=== PATIENT | female | born 1945 | race African-American/Black ===

== ENCOUNTER 2016-12-28 08:24 | Emergency (ER) | payer MEDICARE, MEDICAID ==
[~2016-12-28] VITALS: Ht 162.6 cm; Wt 86.5 kg
[2016-12-28] MEDS ORDERED: GABA-529 PO (09:06)
[2016-12-28] MEDS ORDERED: LOSA1TAB34 PO (09:06)
[2016-12-28] MEDS ORDERED: ACETAMINOPHEN 325MG TABLET PO ONE (09:30)
[2016-12-28] MEDS ORDERED: SODIUM CHLORIDE 0.9% 500 ML IV ONE (09:30)
[2016-12-28] MEDS ORDERED: ONDANSETRON HCL 4MG/2ML VIAL IV ONE (09:30)
[2016-12-28 09:59] LABS: BASOPHILS % 1.1 % (0.0-2.0); EOSINOPHILS % 0.5 % (0.0-5.0); HEMATOCRIT. 43.8 % (36.0-48.0); HEMOGLOBIN. 14.7 g/dL (12.0-16.0); LYMPHOCYTES % 23.8 % (20.0-50.0); MEAN CORPUSCULAR HEMOGLOBIN 27.8 pg (28.0-32.0); MEAN CORPUSCULAR HGB CONC 33.5 g/dL (31.0-37.0); MEAN CORPUSCULAR VOLUME 83.1 fL (81.0-99.0); MEAN PLATELET VOLUME 9.2 fl (7.4-10.4); MONOCYTES % 3.9 % (2.0-8.0); NEUTROPHILS % 70.7 % (40.0-76.0); PLATELET 194 x1000/uL (130-400); RED BLOOD CELL COUNT 5.27 mill/uL (4.2-5.4); RED CELL DISTRIBUTION WIDTH 14.1 % (11.6-14.6); WHITE BLOOD COUNT 4.7 x1000/uL (4.5-11.0)
[2016-12-28 10:17] LABS: ALANINE AMINOTRANSFERASE 18 IU/L (13-61); ANION GAP 11; CALCIUM 9.4 mg/dL (8.5-10.1); CARBON DIOXIDE 30 mEq/L (21-32); CHLORIDE 103 mEq/L (98-107); INDEX HEMOLYSI 2 (1-3); INDEX ICTERIC 1 (1-4); INDEX LIPEMIC 1 (1-3); MAGNESIUM 2.1 mg/dL (1.8-2.4); TROPONIN I < 0.02 ng/mL (0.00-0.04); UREA NITROGEN BLOOD 18 mg/dL (7-21); eGFR > 60 mL/min (>60)
[2016-12-28 10:49] LABS: CLARITY URINE CLEAR (CLEAR); COLOR URINE YELLOW (YELLOW); GLUCOSE URINE NEGATIVE (NEGATIVE); KETONES URINE NEGATIVE (NEGATIVE); LEUKOCYTE ESTERASE URINE 1+ (NEGATIVE); NITRITE URINE NEGATIVE (NEGATIVE); OCCULT BLOOD URINE NEGATIVE (NEGATIVE); PROTEIN URINE NEGATIVE (NEGATIVE); SPECIFIC GRAVITY URINE 1.017 (1.005-1.030); UROBILINOGEN URINE 0.2 E.U./dL (0.2-1.0)
[2016-12-28 10:56] LABS: T4 FREE 1.11 ng/dL (0.76-1.46); THYROID STIMULATING HORMONE 1.3 uIU/mL (0.36-3.74)
[2016-12-28 11:14] LABS: BACTERIA URINE 1+; RBC URINE NONE SEEN /hpf (0-2); SQUAMOUS EPITHELIAL CELL URINE FEW /lpf (RARE/1+)
[2016-12-28 11:34] LABS: *AMPHETAMINES SCREEN URINE NEGATIVE (NEGATIVE); *BARBITURATES SCREEN URINE NEGATIVE (NEGATIVE); *BENZODIAZEPINES SCREEN URINE NEGATIVE (NEGATIVE); *COCAINE SCREEN URINE NEGATIVE (NEGATIVE); CANNABINOID URINE SCREEN NEGATIVE (NEGATIVE); ECSTASY MDMA SCREEN URINE NEGATIVE (NEGATIVE); METHADONE URINE SCREEN NEGATIVE (NEGATIVE); OPIATES URINE SCREEN NEGATIVE (NEGATIVE); PHENCYCLIDINE URINE SCREEN NEGATIVE (NEGATIVE)
[2016-12-28 13:15] VITALS: BP 156/91
[2016-12-28] MEDS ORDERED: SULFAMETHOXAZOLE/TRIMETHOPRIM 800/160MG TABLET PO ONE (13:30)
== END 2016-12-28 13:57 | disposition home or self-care (01) ==
LOC: ER 09:58
DX: N39.0 Urinary tract infection, site not specified (principal); E86.0 Dehydration; N20.0 Calculus of kidney; R73.03 Prediabetes; R26.81 Unsteadiness on feet; K76.89 Other specified diseases of liver; K57.90 Diverticulosis of intestine, part unspecified, without perforation or abscess without bleeding; M19.90 Unspecified osteoarthritis, unspecified site; I10 Essential (primary) hypertension; Z88.6 Allergy status to analgesic agent; Z88.5 Allergy status to narcotic agent; Z79.899 Other long term (current) drug therapy; Z90.710 Acquired absence of both cervix and uterus; Z87.891 Personal history of nicotine dependence
CPT/HCPCS: 36415; 70450; 71010; 74176; 80053; 80305; 81001; 82941; 83036; 83605; 83735; 84439; 84443; 84484; 85025; 85651; 86141; 87040; 87086; 93005; 96361; 96374; 99285; J2405; J7040

== ENCOUNTER 2018-11-04 21:51 | Inpatient (IN) | payer MEDICARE, OTHER ==
[~2018-11-04] VITALS: Ht 165.1 cm; Wt 74.8 kg
[~2018-11-04 21:51] MED LIST: GABA-529 PO; LOSA1TAB34 PO
[2018-11-04] MEDS ORDERED: SODIUM CHLORIDE 0.9% 1,000 ML IV ONE (22:05)
[2018-11-04 22:33] LABS: BASOPHILS % 0.7 % (0.0-2.0); EOSINOPHILS % 0.8 % (0.0-5.0); HEMATOCRIT. 40.5 % (36.0-48.0); HEMOGLOBIN. 13.2 g/dL (12.0-16.0); LYMPHOCYTES % 30.6 % (20.0-50.0); MEAN CORPUSCULAR HEMOGLOBIN 28.1 pg (28.0-32.0); NEUTROPHILS % 60.9 % (40.0-76.0); PLATELET 227 x1000/uL (130-400); RED BLOOD CELL COUNT 4.71 mill/uL (4.2-5.4); RED CELL DISTRIBUTION WIDTH 14.2 % (11.6-14.6)
[2018-11-04 22:38] LABS: CHLORIDE 107 mEq/L (98-107)
[2018-11-04 22:42] LABS: ETHANOL BLOOD < 10 mg/dL
[2018-11-04 22:45] LABS: LDL CHOLESTEROL 142 mg/dL (5-100)
[2018-11-05 01:32] LABS: CLARITY URINE CLEAR (CLEAR); COLOR URINE YELLOW (YELLOW); KETONES URINE NEGATIVE (NEGATIVE); LEUKOCYTE ESTERASE URINE NEGATIVE (NEGATIVE); NITRITE URINE NEGATIVE (NEGATIVE); OCCULT BLOOD URINE NEGATIVE (NEGATIVE); PROTEIN URINE NEGATIVE (NEGATIVE); UROBILINOGEN URINE 0.2 E.U./dL (0.2-1.0)
[2018-11-05 06:15] LABS: *AMPHETAMINES SCREEN URINE NEGATIVE (NEGATIVE); *BARBITURATES SCREEN URINE NEGATIVE (NEGATIVE); *BENZODIAZEPINES SCREEN URINE NEGATIVE (NEGATIVE); *COCAINE SCREEN URINE NEGATIVE (NEGATIVE); CANNABINOID URINE SCREEN NEGATIVE (NEGATIVE); METHADONE URINE SCREEN NEGATIVE (NEGATIVE); OPIATES URINE SCREEN NEGATIVE (NEGATIVE); PHENCYCLIDINE URINE SCREEN NEGATIVE (NEGATIVE)
[2018-11-05] MEDS ORDERED: HYDRALAZINE 20MG/ML VIAL IV PRN (07:15)
[2018-11-05] MEDS ORDERED: IPRATROPIUM/ALBUTEROL 0.5-3(2.5)MG/3ML NEB INH PRN (07:15)
[2018-11-05] MEDS ORDERED: DIPHENHYDRAMINE 50MG/ML VIAL IV PRN (07:15)
[2018-11-05] MEDS ORDERED: CLONIDINE 0.1MG TABLET PO PRN (07:15)
[2018-11-05] MEDS ORDERED: LORAZEPAM 2MG/ML CPJ IV PRN (07:15)
[2018-11-05] MEDS ORDERED: ONDANSETRON HCL 4MG/2ML INJ IV PRN (07:15)
[2018-11-05] MEDS ORDERED: GUAIFENESIN 200MG/10ML SUGAR FREE UDC PO PRN (07:15)
[2018-11-05] MEDS ORDERED: DOCUSATE SODIUM 100MG CAPSULE PO PRN (07:15)
[2018-11-05] MEDS ORDERED: MAGNESIUM/ALUMINUM HYDROXIDE/SIMETHICONE 30ML UDC PO PRN (07:15)
[2018-11-05] MEDS ORDERED: ACETAMINOPHEN 325MG TABLET PO PRN (07:15)
[2018-11-05] MEDS ORDERED: TRAMADOL 50MG TABLET PO PRN (07:15)
[2018-11-05 11:14] VITALS: BP 130/58
[2018-11-05 11:50] VITALS: BP 141/66
[2018-11-05] MEDS ORDERED: LOSA1TAB34 MT (11:56)
[2018-11-05] MEDS ORDERED: CHOL400C8 MT (11:56)
[2018-11-05] MEDS ORDERED: CALC-25 MT (11:56)
[2018-11-05] MEDS: SODIUM CHLORIDE 0.9% INJ 3ML FLUSH IVF SCH ×2 (12:32→14:07)
[2018-11-05] MEDS: ENOXAPARIN 40MG/0.4ML SYR SUBCUT SCH (12:32)
[2018-11-05] MEDS ORDERED: MEDICATION NOT ON FORMULARY EA (Losartan/Hydrochlorothiazide (Losartan-Hctz 50-12.5 Mg T MT SCH (13:30)
[2018-11-05] MEDS ORDERED: ATOR20TA65 MT (13:49)
[2018-11-05] MEDS: LOSARTAN POTASSIUM 50 MG TABLET PO SCH (14:07)
[2018-11-05] MEDS: HYDROCHLOROTHIAZIDE 12.5MG CAPSULE PO SCH (14:07)
[2018-11-05 15:02] LABS: CREATINE KINASE 148 IU/L (26-192)
[2018-11-05 15:03] LABS: CREATINE KINASE MB FRACTION < 1.0 ng/mL (0.5-3.6)
[2018-11-05 16:00] VITALS: BP 132/62
[2018-11-05 20:00] VITALS: BP 125/58
[2018-11-05] MEDS: ATORVASTATIN CALCIUM 20MG TABLET PO SCH (21:00)
[2018-11-06] VITALS: BP 143/57
[2018-11-06 00:04] LABS: CREATINE KINASE 154 IU/L (26-192)
[2018-11-06 00:05] LABS: CREATINE KINASE MB FRACTION < 1.0 ng/mL (0.5-3.6)
[2018-11-06] MEDS: SODIUM CHLORIDE 0.9% INJ 3ML FLUSH IVF SCH ×4 (00:20→21:28)
[2018-11-06 04:00] VITALS: BP 127/61
[2018-11-06 07:01] LABS: BASOPHILS % 1.1 % (0.0-2.0); EOSINOPHILS % 3.2 % (0.0-5.0); HEMATOCRIT. 38.6 % (36.0-48.0); LYMPHOCYTES % 45.6 % (20.0-50.0); MEAN CORPUSCULAR HEMOGLOBIN 27.5 pg (28.0-32.0); MEAN CORPUSCULAR VOLUME 88.5 fL (81.0-99.0); MEAN PLATELET VOLUME 9.2 fl (7.4-10.4); MONOCYTES % 7.2 % (2.0-8.0); NEUTROPHILS % 42.9 % (40.0-76.0); PLATELET 180 x1000/uL (130-400); RED BLOOD CELL COUNT 4.36 mill/uL (4.2-5.4); RED CELL DISTRIBUTION WIDTH 14.1 % (11.6-14.6)
[2018-11-06 07:06] LABS: CHLORIDE 107 mEq/L (98-107)
[2018-11-06 07:14] LABS: LDL CHOLESTEROL 114 mg/dL (5-100)
[2018-11-06 07:16] LABS: HDL CHOLESTEROL 81 mg/dL (40-59); T4 FREE 1.17 ng/dL (0.76-1.46)
[2018-11-06] MEDS: CALCIUM CARBONATE 1250MG TABLET (500MG ELEMENTAL CALCIUM) PO SCH (10:30)
[2018-11-06] MEDS: ENOXAPARIN 40MG/0.4ML SYR SUBCUT SCH (10:30)
[2018-11-06] MEDS: CHOLECALCIFEROL (VIT D3) 400 UNIT TABLET PO SCH (10:30)
[2018-11-06 12:00] VITALS: BP 125/62
[2018-11-06] MEDS: LOSARTAN POTASSIUM 50 MG TABLET PO SCH (13:41)
[2018-11-06] MEDS: HYDROCHLOROTHIAZIDE 12.5MG CAPSULE PO SCH (13:41)
[2018-11-06 16:00] VITALS: BP 116/41
[2018-11-06 20:00] VITALS: BP 141/65
[2018-11-06] MEDS: ATORVASTATIN CALCIUM 20MG TABLET PO SCH (20:49)
[2018-11-07] VITALS: BP 115/61
[2018-11-07 04:00] VITALS: BP 138/64
[2018-11-07] MEDS: SODIUM CHLORIDE 0.9% INJ 3ML FLUSH IVF SCH (05:27)
[2018-11-07 07:59] LABS: VITAMIN B12 SERUM > 2000.0 pg/mL (211-911)
[2018-11-07 08:00] VITALS: BP 129/66
[2018-11-07] MEDS: CHOLECALCIFEROL (VIT D3) 400 UNIT TABLET PO SCH (09:20)
[2018-11-07] MEDS: LOSARTAN POTASSIUM 50 MG TABLET PO SCH (09:20)
[2018-11-07] MEDS: CALCIUM CARBONATE 1250MG TABLET (500MG ELEMENTAL CALCIUM) PO SCH (09:20)
[2018-11-07] MEDS: HYDROCHLOROTHIAZIDE 12.5MG CAPSULE PO SCH (09:20)
[2018-11-07] MEDS: ENOXAPARIN 40MG/0.4ML SYR SUBCUT SCH (09:25)
[2018-11-07 12:00] VITALS: BP 129/66
[2018-11-07 12:08] VITALS: BP 111/63
== END 2018-11-07 12:57 | disposition home or self-care (01) | DRG 69 ==
LOC: ER 21:58 → 8WST 11-05 01:03 → EDBEDREQSVC 11-05 01:05 → EDBEDREQTM 11-05 01:05 → EDBEDREQ 11-05 01:05 → ENRESERV 11-05 07:07 → 8WST 11-05 09:04
PROVIDERS: ADMIT Internal Medicine; ATTEND Internal Medicine
DX: G45.9 Transient cerebral ischemic attack, unspecified (principal); R25.1 Tremor, unspecified; F79 Unspecified intellectual disabilities; H40.9 Unspecified glaucoma; I10 Essential (primary) hypertension; M19.90 Unspecified osteoarthritis, unspecified site; Z87.440 Personal history of urinary (tract) infections; Z88.6 Allergy status to analgesic agent; Z90.710 Acquired absence of both cervix and uterus; Z88.5 Allergy status to narcotic agent; Z88.4 Allergy status to anesthetic agent
CPT/HCPCS: 36415; 71045; 80061; 80305; 82140; 82550; 82553; 82607; 83721; 84439; 84443; 84484; 93005; 96372; 97116; 97162; 99285; J1650; J7030

== ENCOUNTER → 2021-02-05 | Outpatient (CLI) | payer MEDICARE, OTHER ==
[~2021-02-05] MED LIST changes: +ATOR20TA65 MT; +CALC-26 MT; +CHOL400C8 MT; -GABA-529 PO; +LOSA100T32 PO; +LOSA1TAB34 MT; -LOSA1TAB34 PO; +MELO-104 PO; +MULT-1116 PO
== END | disposition home or self-care (01) ==
LOC: LAB 08:37
PROVIDERS: ATTEND Ophthalmology
DX: Z01.812 Encounter for preprocedural laboratory examination (principal); Z20.822 Contact with and (suspected) exposure to COVID-19
CPT/HCPCS: 87426

== ENCOUNTER → 2021-02-06 | Day surgery (SDC) | payer MEDICARE, OTHER ==
[~2021-02-06] VITALS: Ht 160 cm; Wt 61.2 kg
[~2021-02-06] MED LIST changes: +BALANCED SALT IRRIG SOLN 15ML ONE; +BALANCED SALT IRRIG SOLN COMB1 500ML OP SCH; -CALC-26 MT; +CIPROFLOXACIN 0.3% OPHTH SOLN 2.5ML ONE; +FENTANYL CITRATE/PF 50MCG/ML 2ML VIAL ONE; +HYALURONATE SODIUM 10 MG/ML 0.55ML SYRINGE IO ONE; +LACTATED RINGERS 1,000 ML IV SCH; +LIDOCAINE HCL/PF 2% 20 MG/ML 10ML VIAL ONE; -LOSA1TAB34 MT; +MIDAZOLAM HCL 2 MG/2 ML VIAL ONE; +NEO/POLYMYX B SULF/DEXAMETH OPHTH OINT 3.5GM ONE; +PHENYLEPHRINE HCL 10% OPHTH DROPS 5ML LEFTEYE NR; +PHENYLEPHRINE HCL 10% OPHTH DROPS 5ML LEFTEYE SCH; +PHENYLEPHRINE HCL 10% OPHTH DROPS 5ML ONE; +PREDNISOLONE ACETATE 1% OPHTH DROPS 5ML ONE; +TETRACAINE 0.5% OPHTH DROPS 4ML ONE; +TROPICAMIDE 1% OPHTH DROPS 15ML LEFTEYE NR; +TROPICAMIDE 1% OPHTH DROPS 15ML ONE
== END | disposition home or self-care (01) ==
LOC: OR 08:40
PROVIDERS: ATTEND Ophthalmology
DX: H25.89 Other age-related cataract (principal); E78.00 Pure hypercholesterolemia, unspecified; Z79.899 Other long term (current) drug therapy; Z98.890 Other specified postprocedural states; Z88.8 Allergy status to other drugs, medicaments and biological substances; Z82.49 Family history of ischemic heart disease and other diseases of the circulatory system
CPT/HCPCS: 66984; J2250; J3010; J3490; V2632

== ENCOUNTER 2023-08-11 14:07 | Inpatient (IN) | payer MEDICARE, OTHER ==
[~2023-08-11] VITALS: Ht 164.6 cm; Wt 66.7 kg
[2023-08-11] VITALS (19 sets, daily range): BP systolic 114–142; BP diastolic 53–76; PULSE 42–69; RESP 16; TEMP 98–98.5; O2SAT 98
[~2023-08-11 14:07] MED LIST changes: -BALANCED SALT IRRIG SOLN 15ML ONE; -BALANCED SALT IRRIG SOLN COMB1 500ML OP SCH; -CIPROFLOXACIN 0.3% OPHTH SOLN 2.5ML ONE; -FENTANYL CITRATE/PF 50MCG/ML 2ML VIAL ONE; -HYALURONATE SODIUM 10 MG/ML 0.55ML SYRINGE IO ONE; -LACTATED RINGERS 1,000 ML IV SCH; -LIDOCAINE HCL/PF 2% 20 MG/ML 10ML VIAL ONE; -LOSA100T32 PO; +LOSA100T33 PO; -MIDAZOLAM HCL 2 MG/2 ML VIAL ONE; -NEO/POLYMYX B SULF/DEXAMETH OPHTH OINT 3.5GM ONE; -PHENYLEPHRINE HCL 10% OPHTH DROPS 5ML LEFTEYE NR; -PHENYLEPHRINE HCL 10% OPHTH DROPS 5ML LEFTEYE SCH; -PHENYLEPHRINE HCL 10% OPHTH DROPS 5ML ONE; -PREDNISOLONE ACETATE 1% OPHTH DROPS 5ML ONE; -TETRACAINE 0.5% OPHTH DROPS 4ML ONE; -TROPICAMIDE 1% OPHTH DROPS 15ML LEFTEYE NR; -TROPICAMIDE 1% OPHTH DROPS 15ML ONE
[2023-08-11] MEDS ORDERED: PROPOFOL 200MG/20ML VIAL IV ONE (14:30)
[2023-08-11] MEDS ORDERED: FENTANYL 2500MCG/250ML PMX 250 ML IV ONE ×2 (14:30→22:15)
[2023-08-11] MEDS ORDERED: SODIUM CHLORIDE 0.9% 1,000 ML IV ONE (14:30)
[2023-08-11 14:45] LABS: PROTHROMBIN TIME 10.9 sec (9.6-11.0)
[2023-08-11] MEDS ORDERED: FENTANYL CITRATE 2,500 MCG in SODIUM CHLORIDE 0.9% 200 ML IV PRN (14:45)
[2023-08-11 14:46] LABS: CHLORIDE 110 mEq/L (98-107); INDEX HEMOLYSI 2 (1-3); INDEX ICTERIC 1 (1-4); INDEX LIPEMIC 1 (1-3); POTASSIUM 4.2 mEq/L (3.5-5.1); SODIUM 143 mEq/L (136-145)
[2023-08-11 14:55] LABS: BASOPHILS % 0.6 % (0.0-2.0); HEMATOCRIT. 36.5 % (36.0-48.0); HEMOGLOBIN. 11.7 g/dL (12.0-16.0); LYMPHOCYTES % 29.1 % (20.0-50.0); MEAN CORPUSCULAR HEMOGLOBIN 27.9 pg (28.0-32.0); MEAN CORPUSCULAR HGB CONC 32.1 g/dL (31.0-37.0); MEAN PLATELET VOLUME 10.2 fl (7.4-10.4); MONOCYTES % 10.5 % (2.0-8.0); NEUTROPHILS % 58.8 % (40.0-76.0); PLATELET 150 x1000/uL (130-400); RED CELL DISTRIBUTION WIDTH 13.6 % (11.6-14.6); WHITE BLOOD COUNT 2.8 x1000/uL (4.5-11.0)
[2023-08-11 14:57] LABS: ALANINE AMINOTRANSFERASE 16 IU/L (13-61); ALBUMIN 3.5 g/dL (3.4-5.0); ASPARTATE AMINOTRANSFERASE 18 IU/L (15-37); BILIRUBIN TOTAL 0.4 mg/dL (0.1-1.0); CARBON DIOXIDE 31 mEq/L (21-32); ETHANOL BLOOD < 10 mg/dL (<10); GLUCOSE 105 mg/dL (70-105); PROTEIN TOTAL 7.5 g/dL (6.0-8.3); TROPONIN I HIGH SENSITIVITY 6 ng/L (<54); UREA NITROGEN BLOOD 20 mg/dL (7-21)
[2023-08-11 15:15] LABS: CLARITY URINE CLEAR (CLEAR); COLOR URINE YELLOW (YELLOW); GLUCOSE URINE NEGATIVE (NEGATIVE); KETONES URINE NEGATIVE (NEGATIVE); LEUKOCYTE ESTERASE URINE NEGATIVE (NEGATIVE); NITRITE URINE NEGATIVE (NEGATIVE); OCCULT BLOOD URINE NEGATIVE (NEGATIVE); PROTEIN URINE NEGATIVE (NEGATIVE); SPECIFIC GRAVITY URINE 1.021 (1.005-1.030); UROBILINOGEN URINE 0.2 E.U./dL (0.2-1.0)
[2023-08-11] MEDS ORDERED: LEVETIRACETAM 500MG PREMIX 100 ML IV ONE (15:15)
[2023-08-11] MEDS ORDERED: MANNITOL 12.5G (25%) VIAL 50ML IV ONE (15:15)
[2023-08-11] MEDS ORDERED: DEXAMETHASONE 10 MG/ML VIAL IV ONE (15:15)
[2023-08-11] MEDS ORDERED: MORPHINE SULFATE 4 MG/ML CPJ (NOT FOR IM USE) IV ONE (15:45)
[2023-08-11 15:47] LABS: *AMPHETAMINES SCREEN URINE NEGATIVE (NEGATIVE); *BARBITURATES SCREEN URINE NEGATIVE (NEGATIVE); *BENZODIAZEPINES SCREEN URINE NEGATIVE (NEGATIVE); *COCAINE SCREEN URINE NEGATIVE (NEGATIVE); CANNABINOID URINE SCREEN NEGATIVE (NEGATIVE); ECSTASY MDMA SCREEN URINE NEGATIVE (NEGATIVE); METHADONE URINE SCREEN NEGATIVE (NEGATIVE); OPIATES URINE SCREEN NEGATIVE (NEGATIVE); PHENCYCLIDINE URINE SCREEN NEGATIVE (NEGATIVE)
[2023-08-11] MEDS ORDERED: NICARDIPINE 40MG/200ML PREMIX 200 ML IV PRN ×3 (16:00→16:15)
[2023-08-11] MEDS ORDERED: CEFAZOLIN 1000MG PREMIX 50 ML IV SCH (17:00)
[2023-08-11] MEDS: DEXT 5%/LACTATED RINGERS 1,000 ML IV SCH ×2 (17:17→22:04)
[2023-08-11 17:18] LABS: BG BASE EXCESS 0.9 mmol/L (-2.0-2.0); BG CARBOXYHEMOGLOBIN 0.3 % (0.5-1.5); BG DEOXYHEMOGLOBIN 0.2 % (0.0-5.0); BG FRACTION INSPIRED OXYGEN 100; BG HCO3 ACT 24.5 mmol/L (22.0-26.0); BG METHEMOGLOBIN 0.4 % (0.0-1.5); BG OXYGEN SATURATION 99.8 % (92.0-98.5); BG OXYHEMOGLOBIN 99.1 % (94.0-97.0); BG PCO2 35.8 mmHg (35.0-45.0); BG PH 7.454 (7.350-7.450); BG PO2 433.2 mmHg (75.0-100.0); BG SAMPLE SITE RIGHT RADIAL; BG TOTAL HEMOGLOBIN 12.7 g/dL (12.0-18.0); BG VENT MODE VENT - AC
[2023-08-11] MEDS ORDERED: NICARDIPINE 100 MG in SODIUM CHLORIDE 0.9% 60 ML IV PRN (20:00)
[2023-08-11] MEDS ORDERED: CLONIDINE 0.1MG TABLET PO PRN (20:45)
[2023-08-11] MEDS ORDERED: ONDANSETRON HCL 4MG/2ML INJ IV PRN (20:45)
[2023-08-11] MEDS ORDERED: IPRATROPIUM/ALBUTEROL 0.5-3(2.5)MG/3ML NEB HHN PRN (20:45)
[2023-08-11] MEDS ORDERED: ACETAMINOPHEN 650MG/20.3ML UDC NG PRN (20:45)
[2023-08-11] MEDS ORDERED: LEVETIRACETAM 500MG PREMIX 100 ML IV SCH (21:00)
[2023-08-11] MEDS: LEVETIRACETAM 500MG PREMIX 100 ML IV SCH (22:18)
[2023-08-11] MEDS ORDERED: LATA2.5D14 EACHEYE (22:32)
[2023-08-11] MEDS ORDERED: TIMO15DR12 EACHEYE (22:32)
[2023-08-11] MEDS: CEFAZOLIN 1000MG PREMIX 50 ML IV SCH (23:03)
[2023-08-11] MEDS: NICARDIPINE 100 MG in SODIUM CHLORIDE 0.9% 60 ML IV PRN (23:04)
[2023-08-11] MEDS: FENTANYL CITRATE 2,500 MCG in SODIUM CHLORIDE 0.9% 200 ML IV PRN ×2 (23:04→23:35)
[2023-08-12] VITALS (102 sets, daily range): BP systolic 98–149; BP diastolic 42–72; PULSE 38–64; RESP 8–19; TEMP 97.8–98.6
[2023-08-12 05:22] LABS: BASOPHILS % 0.1 % (0.0-2.0); HEMATOCRIT. 38.8 % (36.0-48.0); HEMOGLOBIN. 12.4 g/dL (12.0-16.0); LYMPHOCYTES % 9.6 % (20.0-50.0); MEAN CORPUSCULAR HEMOGLOBIN 28.1 pg (28.0-32.0); MEAN CORPUSCULAR HGB CONC 31.9 g/dL (31.0-37.0); MEAN CORPUSCULAR VOLUME 88.1 fL (81.0-99.0); MONOCYTES % 6.9 % (2.0-8.0); NEUTROPHILS % 83.4 % (40.0-76.0); PLATELET 148 x1000/uL (130-400); RED CELL DISTRIBUTION WIDTH 13.8 % (11.6-14.6); WHITE BLOOD COUNT 8.3 x1000/uL (4.5-11.0)
[2023-08-12 05:30] LABS: CHLORIDE 107 mEq/L (98-107); INDEX HEMOLYSI 1 (1-3); INDEX ICTERIC 1 (1-4); INDEX LIPEMIC 1 (1-3); POTASSIUM 3.9 mEq/L (3.5-5.1); SODIUM 141 mEq/L (136-145)
[2023-08-12] MEDS: CEFAZOLIN 1000MG PREMIX 50 ML IV SCH ×3 (05:34→22:05)
[2023-08-12 05:50] LABS: ALANINE AMINOTRANSFERASE 23 IU/L (13-61); ALBUMIN 3.4 g/dL (3.4-5.0); ASPARTATE AMINOTRANSFERASE 15 IU/L (15-37); BILIRUBIN TOTAL 0.4 mg/dL (0.1-1.0); CALCIUM 9.4 mg/dL (8.5-10.1); CARBON DIOXIDE 28 mEq/L (21-32); CREATININE 0.9 mg/dL (0.6-1.3); GLUCOSE 124 mg/dL (70-105); IRON 21 ug/dL (50-175); PROTEIN TOTAL 7.1 g/dL (6.0-8.3); T4 FREE 1.25 ng/dL (0.76-1.46); TOTAL IRON BINDING CAPACITY 242 ug/dL (250-450); UREA NITROGEN BLOOD 17 mg/dL (7-21)
[2023-08-12 07:18] LABS: BG BASE EXCESS 2.4 mmol/L (-2.0-2.0); BG CARBOXYHEMOGLOBIN 0.3 % (0.5-1.5); BG DEOXYHEMOGLOBIN 0.8 % (0.0-5.0); BG HCO3 ACT 24.2 mmol/L (22.0-26.0); BG METHEMOGLOBIN 0.3 % (0.0-1.5); BG OXYGEN SATURATION 99.2 % (92.0-98.5); BG OXYHEMOGLOBIN 98.6 % (94.0-97.0); BG PCO2 28.9 mmHg (35.0-45.0); BG PO2 219.8 mmHg (75.0-100.0); BG SAMPLE SITE RIGHT BRACHIAL; BG TOTAL HEMOGLOBIN 12.3 g/dL (12.0-18.0); BG VENT MODE VENT - AC
[2023-08-12] MEDS: PANTOPRAZOLE SODIUM 40 MG/VIAL IV SCH (08:38)
[2023-08-12] MEDS: IRON SUCROSE COMPLEX 100 MG/5 ML ML IV SCH (08:39)
[2023-08-12] MEDS: LEVETIRACETAM 500MG PREMIX 100 ML IV SCH ×2 (08:39→22:05)
[2023-08-12] MEDS ORDERED: NALOXONE HCL 0.4MG/ML VIAL IV PRN (10:00)
[2023-08-12] MEDS: DEXT 5%/LACTATED RINGERS 1,000 ML IV SCH (15:37)
[2023-08-12] MEDS ORDERED: DOPAMINE 400MG/250ML PREMIX 250 ML IV PRN (15:45)
[2023-08-12] MEDS: MORPHINE SULFATE 4 MG/ML CPJ (NOT FOR IM USE) IV PRN (22:06)
[2023-08-13] VITALS (95 sets, daily range): BP systolic 104–174; BP diastolic 41–69; PULSE 12–82; RESP 0–18; TEMP 96.8–98.9
[2023-08-13] MEDS: MORPHINE SULFATE 4 MG/ML CPJ (NOT FOR IM USE) IV PRN (01:30)
[2023-08-13] MEDS: FENTANYL CITRATE 2,500 MCG in SODIUM CHLORIDE 0.9% 200 ML IV PRN (02:00)
[2023-08-13] MEDS: NICARDIPINE 100 MG in SODIUM CHLORIDE 0.9% 60 ML IV PRN ×3 (04:11→19:24)
[2023-08-13 04:48] LABS: HEMATOCRIT. 35.1 % (36.0-48.0); HEMOGLOBIN. 11.4 g/dL (12.0-16.0); MEAN CORPUSCULAR HEMOGLOBIN 28.1 pg (28.0-32.0); MEAN CORPUSCULAR HGB CONC 32.7 g/dL (31.0-37.0); MEAN CORPUSCULAR VOLUME 85.9 fL (81.0-99.0); MEAN PLATELET VOLUME 9.6 fl (7.4-10.4); PLATELET 161 x1000/uL (130-400); RED BLOOD CELL COUNT 4.08 mill/uL (4.2-5.4); RED CELL DISTRIBUTION WIDTH 13.8 % (11.6-14.6); WHITE BLOOD COUNT 6.7 x1000/uL (4.5-11.0)
[2023-08-13 05:09] LABS: CALCIUM 9.2 mg/dL (8.7-10.4); CARBON DIOXIDE 25 mEq/L (21-32); CHLORIDE 109 mEq/L (98-107); CREATININE 1.3 mg/dL (0.6-1.0); GLUCOSE 152 mg/dL (70-105); PHOSPHORUS 4.2 mg/dL (2.5-4.9); POTASSIUM 3.8 mEq/L (3.5-5.1); SODIUM 144 mEq/L (136-145); UREA NITROGEN BLOOD 25 mg/dL (9-23)
[2023-08-13] MEDS: CEFAZOLIN 1000MG PREMIX 50 ML IV SCH (05:33)
[2023-08-13 05:59] LABS: DIFFERENTIAL COMMENT 1
[2023-08-13 08:38] LABS: BG BASE EXCESS -2.3 mmol/L (-2.0-2.0); BG CARBOXYHEMOGLOBIN 0.3 % (0.5-1.5); BG FRACTION INSPIRED OXYGEN 40; BG HCO3 ACT 23.3 mmol/L (22.0-26.0); BG METHEMOGLOBIN 0.3 % (0.0-1.5); BG OXYHEMOGLOBIN 98.4 % (94.0-97.0); BG PCO2 43.2 mmHg (35.0-45.0); BG PO2 172.8 mmHg (75.0-100.0); BG SAMPLE SITE RIGHT BRACHIAL; BG TOTAL HEMOGLOBIN 13.5 g/dL (12.0-18.0); BG VENT MODE VENT - AC
[2023-08-13] MEDS: IRON SUCROSE COMPLEX 100 MG/5 ML ML IV SCH (09:16)
[2023-08-13] MEDS: PANTOPRAZOLE SODIUM 40 MG/VIAL IV SCH (09:16)
[2023-08-13] MEDS: LEVETIRACETAM 500MG PREMIX 100 ML IV SCH ×2 (09:16→21:21)
[2023-08-13 09:44] LABS: PLATELET ESTIMATE NORMAL
[2023-08-13] MEDS ORDERED: LIDOCAINE HCL/PF 1% 10 MG/ML 5ML VIAL ONE (11:07)
[2023-08-13] MEDS ORDERED: NITROGLYCERIN OINT 1GM/INCH UDPKT TD PRN (13:15)
[2023-08-13] MEDS: DEXT 5%/LACTATED RINGERS 1,000 ML IV SCH (13:48)
[2023-08-14] VITALS (99 sets, daily range): BP systolic 106–146; BP diastolic 39–55; PULSE 44–73; RESP 0–18; TEMP 98–98.6
[2023-08-14] MEDS: DEXT 5%/LACTATED RINGERS 1,000 ML IV SCH ×3 (00:10→19:56)
[2023-08-14] MEDS: FENTANYL CITRATE 2,500 MCG in SODIUM CHLORIDE 0.9% 200 ML IV PRN (00:13)
[2023-08-14] MEDS: NICARDIPINE 100 MG in SODIUM CHLORIDE 0.9% 60 ML IV PRN ×2 (02:22→22:26)
[2023-08-14 05:40] LABS: BASOPHILS % 0.3 % (0.0-2.0); EOSINOPHILS % 0.2 % (0.0-5.0); HEMATOCRIT. 33.3 % (36.0-48.0); HEMOGLOBIN. 10.6 g/dL (12.0-16.0); LYMPHOCYTES % 16.5 % (20.0-50.0); MEAN CORPUSCULAR HEMOGLOBIN 28.1 pg (28.0-32.0); MEAN CORPUSCULAR VOLUME 87.8 fL (81.0-99.0); MEAN PLATELET VOLUME 9.6 fl (7.4-10.4); MONOCYTES % 8.4 % (2.0-8.0); NEUTROPHILS % 74.6 % (40.0-76.0); PLATELET 139 x1000/uL (130-400); RED BLOOD CELL COUNT 3.79 mill/uL (4.2-5.4); RED CELL DISTRIBUTION WIDTH 14.2 % (11.6-14.6); WHITE BLOOD COUNT 4.7 x1000/uL (4.5-11.0)
[2023-08-14 06:11] LABS: CALCIUM 8.5 mg/dL (8.7-10.4); CARBON DIOXIDE 23 mEq/L (21-32); CHLORIDE 112 mEq/L (98-107); CREATININE 1.5 mg/dL (0.6-1.0); GLUCOSE 119 mg/dL (70-105); PHOSPHORUS 3.5 mg/dL (2.5-4.9); SODIUM 143 mEq/L (136-145); UREA NITROGEN BLOOD 25 mg/dL (9-23)
[2023-08-14] MEDS: PANTOPRAZOLE SODIUM 40 MG/VIAL IV SCH (09:41)
[2023-08-14] MEDS: LEVETIRACETAM 500MG PREMIX 100 ML IV SCH ×2 (09:42→21:02)
[2023-08-14] MEDS: IRON SUCROSE COMPLEX 100 MG/5 ML ML IV SCH (11:11)
[2023-08-14] MEDS: HYDRALAZINE 20MG/ML VIAL IV PRN (23:03)
[2023-08-15] VITALS (103 sets, daily range): BP systolic 114–146; BP diastolic 39–55; PULSE 61–76; RESP 15–26; TEMP 97.8–99.5
[2023-08-15] MEDS: MORPHINE SULFATE 4 MG/ML CPJ (NOT FOR IM USE) IV PRN (02:08)
[2023-08-15] MEDS: NICARDIPINE 100 MG in SODIUM CHLORIDE 0.9% 60 ML IV PRN ×2 (04:52→20:28)
[2023-08-15] MEDS: LABETALOL 5MG/ML SYR 20 MG/4 ML SYRINGE IV PRN (05:08)
[2023-08-15 05:31] LABS: BASOPHILS % 0.2 % (0.0-2.0); EOSINOPHILS % 0.2 % (0.0-5.0); HEMATOCRIT. 35.2 % (36.0-48.0); HEMOGLOBIN. 11.5 g/dL (12.0-16.0); LYMPHOCYTES % 8.6 % (20.0-50.0); MEAN CORPUSCULAR HEMOGLOBIN 28.5 pg (28.0-32.0); MEAN CORPUSCULAR HGB CONC 32.6 g/dL (31.0-37.0); MEAN CORPUSCULAR VOLUME 87.4 fL (81.0-99.0); MEAN PLATELET VOLUME 9.6 fl (7.4-10.4); MONOCYTES % 6.7 % (2.0-8.0); NEUTROPHILS % 84.3 % (40.0-76.0); PLATELET 148 x1000/uL (130-400); RED BLOOD CELL COUNT 4.03 mill/uL (4.2-5.4); RED CELL DISTRIBUTION WIDTH 13.9 % (11.6-14.6); WHITE BLOOD COUNT 6.6 x1000/uL (4.5-11.0)
[2023-08-15 05:42] LABS: CALCIUM 8.6 mg/dL (8.7-10.4); CARBON DIOXIDE 24 mEq/L (21-32); CHLORIDE 112 mEq/L (98-107); CREATININE 1.5 mg/dL (0.6-1.0); GLUCOSE 124 mg/dL (70-105); PHOSPHORUS 2.4 mg/dL (2.5-4.9); POTASSIUM 3.6 mEq/L (3.5-5.1); SODIUM 145 mEq/L (136-145); UREA NITROGEN BLOOD 33 mg/dL (9-23)
[2023-08-15] MEDS: DEXT 5%/LACTATED RINGERS 1,000 ML IV SCH ×2 (06:43→16:40)
[2023-08-15] MEDS: PANTOPRAZOLE SODIUM 40 MG/VIAL IV SCH (08:57)
[2023-08-15] MEDS: IRON SUCROSE COMPLEX 100 MG/5 ML ML IV SCH (08:57)
[2023-08-15] MEDS: LEVETIRACETAM 500MG PREMIX 100 ML IV SCH ×2 (08:58→20:28)
[2023-08-15 12:07] LABS: BG BASE EXCESS -0.8 mmol/L (-2.0-2.0); BG CARBOXYHEMOGLOBIN 0.3 % (0.5-1.5); BG DEOXYHEMOGLOBIN 8.8 % (0.0-5.0); BG FRACTION INSPIRED OXYGEN 35; BG HCO3 ACT 22.6 mmol/L (22.0-26.0); BG METHEMOGLOBIN 0.3 % (0.0-1.5); BG OXYGEN SATURATION 91.1 % (92.0-98.5); BG OXYHEMOGLOBIN 90.6 % (94.0-97.0); BG PCO2 32.8 mmHg (35.0-45.0); BG PH 7.456 (7.350-7.450); BG PO2 55.9 mmHg (75.0-100.0); BG SAMPLE SITE RIGHT RADIAL; BG TOTAL HEMOGLOBIN 10.8 g/dL (12.0-18.0); BG VENT MODE VENT - AC/VC
[2023-08-15] MEDS ORDERED: POTASSIUM PHOS,M-BASIC-D-BASIC 20 MMOL in DEXT 5% WATER 243.3333 ML IV NR (14:00)
[2023-08-16] VITALS (79 sets, daily range): BP systolic 123–163; BP diastolic 45–69; PULSE 59–83; RESP 16–22; TEMP 97.5–99.5
[2023-08-16] MEDS: DEXT 5%/LACTATED RINGERS 1,000 ML IV SCH ×3 (02:35→22:33)
[2023-08-16 05:32] LABS: HEMATOCRIT. 32.4 % (36.0-48.0); HEMOGLOBIN. 10.6 g/dL (12.0-16.0); MEAN CORPUSCULAR HEMOGLOBIN 28.4 pg (28.0-32.0); MEAN CORPUSCULAR HGB CONC 32.8 g/dL (31.0-37.0); MEAN CORPUSCULAR VOLUME 86.8 fL (81.0-99.0); MEAN PLATELET VOLUME 9.1 fl (7.4-10.4); PLATELET 172 x1000/uL (130-400); RED BLOOD CELL COUNT 3.73 mill/uL (4.2-5.4); RED CELL DISTRIBUTION WIDTH 13.5 % (11.6-14.6); WHITE BLOOD COUNT 6.8 x1000/uL (4.5-11.0)
[2023-08-16 05:36] LABS: CALCIUM 8.7 mg/dL (8.7-10.4); CARBON DIOXIDE 24 mEq/L (21-32); CHLORIDE 111 mEq/L (98-107); CREATININE 1.1 mg/dL (0.6-1.0); GLUCOSE 146 mg/dL (70-105); PHOSPHORUS 2.7 mg/dL (2.5-4.9); POTASSIUM 3.8 mEq/L (3.5-5.1); SODIUM 144 mEq/L (136-145); UREA NITROGEN BLOOD 27 mg/dL (9-23)
[2023-08-16 06:22] LABS: DIFFERENTIAL COMMENT 1
[2023-08-16] MEDS: PANTOPRAZOLE SODIUM 40 MG/VIAL IV SCH (09:36)
[2023-08-16] MEDS: LEVETIRACETAM 500MG PREMIX 100 ML IV SCH ×2 (09:36→20:38)
[2023-08-16] MEDS: LABETALOL 5MG/ML SYR 20 MG/4 ML SYRINGE IV PRN ×2 (11:11→19:39)
[2023-08-16 11:40] LABS: PLATELET ESTIMATE NORMAL
[2023-08-16] MEDS: HYDRALAZINE 20MG/ML VIAL IV PRN (20:33)
[2023-08-16] MEDS: NICARDIPINE 100 MG in SODIUM CHLORIDE 0.9% 60 ML IV PRN (21:05)
[2023-08-17] VITALS (66 sets, daily range): BP systolic 96–175; BP diastolic 33–71; PULSE 49–75; RESP 12–24; TEMP 97.1–98
[2023-08-17 05:19] LABS: HEMATOCRIT. 34.7 % (36.0-48.0); HEMOGLOBIN. 11.1 g/dL (12.0-16.0); MEAN CORPUSCULAR HEMOGLOBIN 28.4 pg (28.0-32.0); MEAN CORPUSCULAR HGB CONC 32.1 g/dL (31.0-37.0); MEAN CORPUSCULAR VOLUME 88.6 fL (81.0-99.0); MEAN PLATELET VOLUME 8.4 fl (7.4-10.4); PLATELET 208 x1000/uL (130-400); RED BLOOD CELL COUNT 3.92 mill/uL (4.2-5.4); RED CELL DISTRIBUTION WIDTH 14.1 % (11.6-14.6)
[2023-08-17 05:37] LABS: CALCIUM 8.8 mg/dL (8.7-10.4); CARBON DIOXIDE 26 mEq/L (21-32); CHLORIDE 113 mEq/L (98-107); CREATININE 0.9 mg/dL (0.6-1.0); GLUCOSE 134 mg/dL (70-105); PHOSPHORUS 2.2 mg/dL (2.5-4.9); POTASSIUM 3.9 mEq/L (3.5-5.1); SODIUM 145 mEq/L (136-145); UREA NITROGEN BLOOD 26 mg/dL (9-23)
[2023-08-17] MEDS: NICARDIPINE 100 MG in SODIUM CHLORIDE 0.9% 60 ML IV PRN (06:03)
[2023-08-17 06:34] LABS: DIFFERENTIAL COMMENT 1
[2023-08-17] MEDS: DEXT 5%/LACTATED RINGERS 1,000 ML IV SCH (08:19)
[2023-08-17] MEDS: PANTOPRAZOLE SODIUM 40 MG/VIAL IV SCH (08:54)
[2023-08-17] MEDS: LEVETIRACETAM 500MG PREMIX 100 ML IV SCH (08:55)
[2023-08-17] MEDS ORDERED: LORAZEPAM 2MG/ML CPJ IV PRN (10:15)
[2023-08-17] MEDS ORDERED: MORPHINE SULFATE 250 MG in DEXT 5% WATER 225 ML IV PRN (10:30)
[2023-08-17] MEDS: MORPHINE SULFATE 250 MG in DEXT 5% WATER 225 ML IV PRN ×2 (10:53→18:28)
[2023-08-17] MEDS ORDERED: SCOPOLAMINE HYDROBROMIDE PATCH 72HR TD SCH (11:30)
[2023-08-17 12:36] LABS: NUCLEATED RED BLOOD CELLS 1 /100 WBC; PLATELET ESTIMATE NORMAL
[2023-08-18] VITALS (62 sets, daily range): BP systolic 91–139; BP diastolic 33–47; PULSE 45–84; RESP 13–23; TEMP 97.1–98.8
[2023-08-18] MEDS: MORPHINE SULFATE 250 MG in DEXT 5% WATER 225 ML IV PRN ×2 (01:04→08:03)
[2023-08-19 08:00] VITALS: BP 116/32; PULSE 59; RESP 23
[2023-08-19] MEDS: MORPHINE SULFATE 250 MG in DEXT 5% WATER 225 ML IV PRN (11:20)
[2023-08-19 12:00] VITALS: BP 136/65; PULSE 64; RESP 20
[2023-08-19] MEDS ORDERED: SCOPOLAMINE HYDROBROMIDE PATCH 72HR TD SCH (14:00)
[2023-08-19 16:00] VITALS: BP 142/67; PULSE 67; RESP 21; TEMP 95.7
[2023-08-19 20:00] VITALS: BP 96/46; PULSE 74; RESP 16; TEMP 96.4
[2023-08-20] VITALS: BP 99/33; PULSE 78; RESP 17; TEMP 97.5
[2023-08-20 04:00] VITALS: BP 101/35; PULSE 72; RESP 19; TEMP 97.7
[2023-08-20 08:11] VITALS: BP 98/40; PULSE 79; RESP 18; TEMP 98
[2023-08-20 12:57] VITALS: BP 149/82; PULSE 77; RESP 18; TEMP 98
[2023-08-20] MEDS: MORPHINE SULFATE 250 MG in DEXT 5% WATER 225 ML IV PRN (14:57)
[2023-08-20 16:13] VITALS: BP 105/67; PULSE 78; RESP 2; TEMP 98
== END 2023-08-21 01:30 | DRG 23 ==
LOC: ER 14:07 → MICUSO 17:29 → EDBEDREQ 17:36 → EDBEDREQTM 17:36 → MICUNO 08-18 09:00 → 6WST 08-18 19:17
PROVIDERS: ADMIT Internal Medicine; ATTEND Internal Medicine
PROC: 009630Z Drainage of Cerebral Ventricle with Drainage Device, Percutaneous Approach (ICD-10-PCS; principal; 2023-08-11)
PROC: 0BH17EZ Insertion of Endotracheal Airway into Trachea, Via Natural or Artificial Opening (ICD-10-PCS; 2023-08-11)
PROC: 5A1955Z Respiratory Ventilation, Greater than 96 Consecutive Hours (ICD-10-PCS; 2023-08-11)
PROC: 05HY33Z Insertion of Infusion Device into Upper Vein, Percutaneous Approach (ICD-10-PCS; 2023-08-13)
PROC: B54MZZA Ultrasonography of Right Upper Extremity Veins, Guidance (ICD-10-PCS; 2023-08-13)
DX: I61.5 Nontraumatic intracerebral hemorrhage, intraventricular (principal); J96.00 Acute respiratory failure, unspecified whether with hypoxia or hypercapnia; G91.9 Hydrocephalus, unspecified; G93.49 Other encephalopathy; E87.3 Alkalosis; N17.9 Acute kidney failure, unspecified; I16.1 Hypertensive emergency; D50.9 Iron deficiency anemia, unspecified; Z66 Do not resuscitate; D72.819 Decreased white blood cell count, unspecified; E78.00 Pure hypercholesterolemia, unspecified; H40.9 Unspecified glaucoma; Z86.73 Personal history of transient ischemic attack (TIA), and cerebral infarction without residual deficits; Z88.6 Allergy status to analgesic agent; Z90.710 Acquired absence of both cervix and uterus; Z98.2 Presence of cerebrospinal fluid drainage device; Z79.899 Other long term (current) drug therapy
CPT/HCPCS: 36415; 36573; 36600; 70496; 70498; 71045; 80048; 80053; 80061; 80305; 80320; 81003; 82375; 82805; 82962; 83036; 83540; 83550; 83735; 84100; 84439; 84443; 84484; 85025; 85379; 87070; 93005; 93306; 93970; 94002; 94003; 94640; 99285; C1725; C9113; J0360; J0690; J1100; J1265; J1953; J2150; J2270; J3010; J3490; J7030; J7050; J7060; J7121; G0480